=== PATIENT | female | born 1975 | race Caucasian/White ===

== ENCOUNTER 2017-02-03 14:55 | Emergency (ER) | payer OTHER ==
[~2017-02-03] VITALS: Ht 162.6 cm; Wt 73.0 kg
[~2017-02-03 14:55] MED LIST: NAPROSYN500 MG PO; PAXIL20 MG PO; ROBITUSSIN AC,T10 ML PO
[2017-02-03 16:37] VITALS: BP 127/80
== END 2017-02-03 16:53 | disposition home or self-care (01) ==
LOC: EME 14:55
PROC: 0HQGXZZ Repair Left Hand Skin, External Approach (ICD-10-PCS; principal; 2017-02-03)
DX: S61.012A Laceration without foreign body of left thumb without damage to nail, initial encounter (principal); W26.0XXA Contact with knife, initial encounter; Y92.000 Kitchen of unspecified non-institutional (private) residence as the place of occurrence of the external cause
CPT/HCPCS: 99281; 99284